=== PATIENT | female | born 1995 | race Caucasian/White ===

== ENCOUNTER 2024-10-18 05:43 | Emergency (ER) | payer MEDICAID, SELFPAY ==
[2024-10-18 05:44] VITALS: BMI 43.8
[2024-10-18 05:56] VITALS: BP 130/84; PULSE 65; RESP 19; TEMP 36.4; O2SAT 100
--- NOTE | 2024-10-18 06:33 | XR_ITS ---
Examination: Complete OB ultrasound, less than 14 weeks, transabdominal Date and time of exam: October 18, 2024, 0712 hrs. Indications: Onset vaginal bleeding beginning 2 days ago Technique: Obstetrical ultrasound images less than 14 weeks performed via transabdominal imaging Findings: Uterus 9.3 cm, CRL 2.0 cm corresponds to 8 weeks 4 days gestational age. No cardiac motion. Right ovary 3.2 cm arterial flow. Left ovary 4.2 cm arterial flow Impression: demise.
--- NOTE | 2024-10-18 06:37 | PD.EDVAGBL ---
ED OB Contraction Preg RMI/HPI General Chief complaint: Vaginal Bleeding Stated complaint: 9 WKS PREG VAG BLEEDING Time Seen by Provider: 10/18/24 08:12 Source: patient Arrival date/time: 10/18/24 05:43 29-year-old female with no known medical history presents to the emergency room with a chief complaint of vaginal bleeding x 2 days. Patient is currently 9 weeks she is a G 2P1. Mode of arrival: ambulatory Limitations: no limitations Related Data Previous Rx's ?Medication ?Instructions ?Recorded ibuprofen 800 mg tablet 800 mg PO TID PRN pain #30 tabs 08/15/22 cyclobenzaprine 10 mg tablet 10 mg PO HS PRN muscle spasm #14 02/01/23 tabs Allergies Allergy/AdvReac Type Severity Reaction Status Date / Time No Known Allergies Allergy Verified 10/18/24 05:51 Review of Systems Review of Systems Systems Reviewed: All systems reviewed, normal except as documented Constitutional Constitutional: Reports system reviewed and no additional complaints, except as documented, Denies fatigue, Denies fever(s), Denies headache(s) and Denies weakness Eyes Eyes: Reports system reviewed and no additional complaints, except as documented, Denies blurry vision and Denies change in vision ENT Ears, Nose, Mouth, and Throat: Reports system reviewed and no additional complaints, except as documented, Denies otalgia, Denies headache(s), Denies nasal congestion, Denies throat swelling and Denies vertigo Cardiovascular Cardiovascular: Reports system reviewed and no additional complaints, except as documented, Denies chest pain, Denies dyspnea and Denies dyspnea on exertion Respiratory Respiratory: Reports system reviewed and no additional complaints, except as documented, Denies chest congestion, Denies cough, Denies dyspnea, Denies dyspnea on exertion and Denies wheezing Gastrointestinal Gastrointestinal: Reports system reviewed and no additional complaints, except as documented, Denies abdominal pain, Denies cramping, Denies nausea and Denies vomiting Genitourinary Genitourinary: Reports system reviewed and no additional complaints, except as documented, Reports abnormal vaginal bleeding and Reports pelvic pain Musculoskeletal Musculoskeletal: Reports system reviewed and no additional complaints, except as documented and Denies back pain Integumentary/Breasts Skin/Breast: Reports system reviewed and no additional complaints, except as documented and Denies wounds Neurologic Neurologic: Reports system reviewed and no additional complaints, except as documented, Denies confusion, Denies headache(s), Denies lack of coordination, Denies vertigo and Denies weakness Psychiatric Psychiatric: Reports system reviewed and no additional complaints, except as documented, Denies anxiety, Denies confusion, Denies depression, Denies paranoia, Denies suicidal ideation and Denies tactile hallucinations Endocrine Endocrine: Reports system reviewed and no additional complaints, except as documented and Denies fatigue Hematologic/Lymphatic Hematologic/Lymphatic: Reports system reviewed and no additional complaints, except as documented and Denies lymphadenopathy Allergic/Immunologic Allergic/Immunologic: Reports system reviewed and no additional complaints, except as documented, Denies throat swelling, Denies urticaria and Denies wheezing Past Medical History Past Medical History NEUROLOGIC: Negative Neurological Disorders or Seizures CARDIAC: Negative Cardiac Disorders or Congestive Heart Failure RESPIRATORY: Positive Asthma; Negative Chronic Obstructive Pulmonary Disease (COPD) GASTROINTESTINAL: Negative Gastrointestinal Disorders GENITOURINARY: Positive Genitourinary Disorders; Negative Renal Disease REPRODUCTIVE: Positive Previous Pregnancies; Negative Endometriosis, Pelvic Inflammatory Disease or Uterine Prolapse MUSCULOSKELETAL: Negative Musculoskeletal Disorders ENDOCRINE: Negative Endocrine Disorders, Diabetes Mellitus Type 1 or Diabetes Mellitus Type 2 HEMATOLOGIC: Negative Blood Disorders or Anemia PSYCHO/SOCIAL: Positive Anxiety OTHER HISTORY: Positive Hospitalization; Negative Autoimmune Disease, Falls, Blood Transfusions or Anesthesia Reactions Family History FAMILY HISTORY: Positive Family Respiratory Disorders; Negative Family Psychiatric Problems, Family Cardiac Disorders, Family Gastrointestinal Problems, Family Cancer, Family Surgery or Family Anesthesia Reaction Surgical History SURGICAL: Negative Section Social History SMOKING STATUS: Never smoker ED Exam General Limitations: Present no limitations General appearance: Present alert and in no apparent distress Head Head exam: Present atraumatic Eye Eye exam: Present normal appearance, PERRL and EOMI ENT ENT exam: Present normal exam, normal oropharynx and mucous membranes moist Neck Neck exam: Present normal inspection, full ROM and trachea midline Chest Chest inspection: Present normal inspection and symmetric chest wall rise Respiratory Respiratory exam: Present normal lung sounds bilaterally Cardiovascular Cardiovascular exam: Present regular rate, normal rhythm and normal heart sounds Abdominal Exam Abdominal exam: Present soft, tenderness and normal bowel sounds; Absent distention, guarding, rebound, rigidity, Mcclain's sign or tenderness at McBurney's Point Abdominal tenderness: Present LLQ and mild Extremities Exam Extremities exam: Present normal inspection and full ROM Back Exam Back exam: Present normal inspection and full ROM Neurological Exam Neurological exam: Present alert, oriented X3 and CN II-XII intact Psychiatric Psychiatric exam: Present normal affect and normal mood Skin Skin exam: Present warm, dry, intact and normal color Course Quality Measures none Orders Category Date Time Status Consult to Gynecology Stat Cons 10/18/24 09:47 Ordered US OB <= 14 weeks fetus Stat Exams 10/18/24 06:33 Completed US OB transvaginal Stat Exams 10/18/24 07:25 Completed ABO/RH Type Stat Lab 10/18/24 07:02 Results Beta HCG,Quantitative Stat Lab 10/18/24 07:02 Completed CBC Stat Lab 10/18/24 07:02 Completed CMP [Comprehensive Metabolic Panel] Stat Lab 10/18/24 07:02 Completed UA [Urinalysis] Stat Lab 10/18/24 07:30 Completed Vital Signs Vital signs: Vital Signs Temperature 97.6 F 10/18/24 05:56 Pulse Rate 65 10/18/24 05:56 Respiratory Rate 19 10/18/24 05:56 Blood Pressure 130/84 10/18/24 05:56 Pulse Oximetry (%) 100 10/18/24 05:56 Oxygen Delivery Method Room Air 10/18/24 05:56 Vaginal Bleeding MDM Narrative MDM Narrative: 29-year-old female with no known medical history presents to the emergency room with a chief complaint of vaginal bleeding x 2 days. Patient is currently 9 weeks she is a G 2P1. Patient is hemodynamically stable and in no apparent distress Physical examination shows left lower quadrant abdominal pain and tenderness with palpation. Patient states she has had vaginal bleeding that is bright red x 2 days. Patient's H&H is within normal limits. OB transvaginal ultrasound shows a gestational age of 8 weeks and 5 days with no cardiac motion. The patient also has 2 subchorionic hemorrhages. The OB ultrasound showed a demise Dr. Canela the PRECISION THREAD GRINDER OPERATOR on-call was consulted and he came down to see the patient. Dr. Canela spoke to the patient and will see her tomorrow in his office. Per Dr. Canela the patient states she would like a second opinion and she will go to another hospital for repeat blood work and ultrasound. The patient wants to be discharged Patient was discharged and educated to follow-up with primary care provider in the next 24 to 48 hours and return to the emergency room for any evidence of worsening signs or symptoms Patient data External records reviewed:: [facility] previous records Clinical information provided by:: patient Social determinants that could affect healthcare access:: none Patient has the following chronic illnesses:: No chronic illness How is presenting disease/condition affected by chronic disease/condition?: no chronic disease Evaluation data The following diagnostics were reviewed and interpreted by me:: lab results and radiology exam(s) Lab and/or radiology exams considered but not ordered:: Labs and radiology exams considered in order Interpretation Summary: OB ultrasound-Findings: Uterus 9.3 cm, CRL 2.0 cm corresponds to 8 weeks 4 days gestational age. No cardiac motion. Right ovary 3.2 cm arterial flow. Left ovary 4.2 cm arterial flow Impression: demise. OB transvaginal ultrasound-Findings: Uterus 7.8 cm CRL 2.1 cm corresponds to 8 weeks 5 day gestational age, no cardiac motion 26 mm, 23 mm subchorionic hemorrhages Right ovary 2.0 cm arterial flow. Left ovary 3.1 cm arterial flow Impression: demise. Medications / Prescriptions Medications or Prescriptions considered but not ordered:: No medication given Medication administrations:: No medication given Consultations Consultation(s) initiated? (list below): Yes Consultation #1 (Physician, Specialty, Details): Dr. Canela PRECISION THREAD GRINDER OPERATOR on-call Time: 09:25 Diagnosis Vaginal Bleeding Differential Diagnosis: threatened , dysfunctional uterine bleeding, incomplete , ectopic without intrauterine , vaginal bleeding and other ( demise) Most likely diagnosis given after review of the tests above:: demise Admission Indicated Admission indicated?: not indicated Admission Request Was there a request for admission?: No Disposition Plan Disposition Plan: Discharge Discharge Attestation Discharge Attestation: The patient and all family members were given an opportunity to ask questions and understood the discharge instructions. Discharge instructions specifically effects, indications for sooner follow up or return to the emergency department, and the expected course of current diagnosis. Patient condition: Stable Discharge Plan Plan Patient Disposition: HOME (Self Care) Discharge Disposition comment: Stable Prescriptions/Referrals Prescriptions/Med Rec: No Action ibuprofen 800 mg tablet 800 mg PO TID PRN (Reason: pain) Qty: 30 0RF cyclobenzaprine 10 mg tablet 10 mg PO HS PRN (Reason: muscle spasm) Qty: 14 0RF Referrals: No Primary/Family,Physician [Primary Care Provider] - In 1 week Problem List Clinical Impression: demise Patient/Caregiver Discharge Instructions Additional Instructions: Please follow-up with your PRECISION THREAD GRINDER OPERATOR in the next 24 to 48 hours Your ultrasound results were given to you. Dr. Canela PRECISION THREAD GRINDER OPERATOR saw you today and will see you tomorrow For any evidence of worsening signs or symptoms return to the emergency room immediately Print Language: Syriac Stand Alone Forms: Juliette Award Info., Patient Portal Info Letter PA/FORESTRY AID TECHNICIAN Supervising Physician PA/FORESTRY AID TECHNICIAN Supervising Physician: Dr. Andrew
[2024-10-18 07:17] LABS: Basophils # (Auto) 0.1 Thou/mm3 (0.0-0.2); Basophils % (Auto) 1 % (0-2.5); Eosinophils # (Auto) 0.3 Thou/mm3 (0.0-0.5); Eosinophils % (Auto) 4 % (0-10); Hematocrit 35.5 % (36.0-46.0); Hemoglobin 11.3 g/dL (12.0-16.0); Immature Granulocytes Auto 0.19 Thou/mm3 (0.00-0.00); Lymphocytes # (Auto) 2.1 Thou/mm3 (1.0-4.8); Lymphocytes % (Auto) 27 % (10-50); Mean Corpuscular HGB Conc 31.8 g/dl (31.0-37.0); Mean Corpuscular Hemoglobin 25.5 pg (25.0-35.0); Mean Corpuscular Volume 80 fL (80-100); Monocytes # (Auto) 0.7 Thou/mm3 (0.0-0.8); Monocytes % (Auto) 8 % (0-12); Neutrophils # (Auto) 4.7 Thou/mm3 (1.8-7.7); Neutrophils % (Auto) 59 % (37-80); Nucleated Red Blood Cell # 0.00 Thou/mm3 (0.00-0.00); Nucleated Red Blood Cell % 0 /100 WBC (0); Platelet Count 415 Thou/mm3 (140-440); RDW Standard Deviation 40.0 fL (36.4-46.3); Red Blood Count 4.43 Miln/mm3 (4.00-5.20); White Blood Count 8.0 Thou/mm3 (3.6-11.0)
--- NOTE | 2024-10-18 07:25 | XR_ITS ---
Examination: OB Transvaginal ultrasound of the pelvis, complete Technique: Transvaginal sonographic images pelvis performed using coello scale imaging Exam date and time: October 18, 2024, 0728 hrs. Indications: Vaginal bleeding beginning 2 days ago. Findings: Uterus 7.8 cm CRL 2.1 cm corresponds to 8 weeks 5 day gestational age, no cardiac motion 26 mm, 23 mm subchorionic hemorrhages Right ovary 2.0 cm arterial flow. Left ovary 3.1 cm arterial flow Impression: demise.
[2024-10-18 07:49] LABS: Alanine Aminotransferase 55 U/L (10-49); Albumin, Serum 4.2 gm/dL (3.5-5.0); Albumin/Globulin Ratio 1.9 (1.2-2.2); Alkaline Phosphatase 73 U/L (46-116); Anion Gap 8 (7-16); Aspartate Amino Transferase 27 U/L (0-34); BUN/Creatinine Ratio 8 Ratio (12-20); Bilirubin,Total 0.2 mg/dL (0.3-1.2); Blood Urea Nitrogen 5 mg/dL (9-23); Calcium 9.1 mg/dL (8.3-10.6); Calcium (Corrected) 9.1 mg/dL (8.5-10.1); Carbon Dioxide 26.5 mMol/L (20.0-31.0); Chloride 106 mMol/L (98-107); Creatinine (Component) 0.6 mg/dL (0.6-1.3); Estimated Creatinine Clearance 189.9 mL/min (>60); Globulin 2.2 gm/dL (2.3-3.5); Glucose 102 mg/dL (74-106); Osmolality,Calculated 276 (275-295); Potassium 3.4 mMol/L (3.4-5.1); Sodium 140 mMol/L (136-145); Total Protein 6.4 gm/dL (5.7-8.2); eGFR > 60 See Note
[2024-10-18 08:10] LABS: Collection Type, Urine Clean Catch
[2024-10-18 08:21] LABS: Beta HCG,Quantitative 20526 mIU/mL (<5.0)
[2024-10-18 08:35] LABS: Bacteria,Urine 3+; Bilirubin,Urine Negative (Negative); Blood,Urine Negative (Negative); Budding Yeast,Urine Present; Clarity,Urine Hazy (Clear/Hazy); Color,Urine Yellow (Lt Yel-Yel); Glucose, Urine 4+ (Negative); Ketones,Urine Trace (Negative); Leukocyte Esterase,Urine Negative (Negative); Nitrite,Urine Positive (Negative); PH,Urine 6.0 (5.0-7.0); Protein,Urine Negative (Neg - Trace); RBC,Urine 2 /hpf (0-3); Specific Gravity,Urine 1.037 (1.001-1.035); Squamous Epithelial Cell,Urine 2 /hpf (0-5); Urobilinogen,Urine Negative mg/dL (0.0-1.0); WBC,Urine 2 /hpf (0-5)
--- NOTE | 2024-10-18 11:47 | PC.CC ---
Caridad NUÑEZ was consulted by MARIANNE Torres regarding a ride for patient back home. JOAQUIN arranged a ride with [facility] back to [place] for the patient.
== END 2024-10-18 09:53 | disposition home or self-care (01) ==
PROVIDERS: Nurse Practitioner Family; Emergency Provider Family Medicine
DX: O02.1 Missed abortion (principal)
CPT/HCPCS: 36415; 76801; 76817; 80053; 81001; 84702; 85025; 86900; 86901; 99283

== ENCOUNTER 2024-10-29 22:29 | Emergency (ER) | payer MEDICAID, SELFPAY ==
[2024-10-29 22:31] VITALS: BMI 50.3
[2024-10-29 23:07] VITALS: BP 147/89; PULSE 89; RESP 22; TEMP 37.1; O2SAT 98
--- NOTE | 2024-10-29 23:36 | XR_ITS ---
Examination: Complete OB ultrasound, less than 14 weeks, transabdominal Date and time of exam: October 29, 2024, 11:51 PM INDICATIONS: Pelvic cramping and vaginal bleeding beginning 2 weeks ago, miscarriage history with demise October 18, 2024 Technique: Obstetrical ultrasound images less than 14 weeks performed via transabdominal imaging Findings: Uterus 12.4 cm, intrauterine gestational sac 1.5 cm corresponds to 6 week 2 day gestational age. No pole, no cardiac activity, patient passing clots during this study Right ovary 3.4 cm arterial flow No appropriate obscured by bowel gas Endometrial stripe 1.6 cm IMPRESSION: Empty intrauterine gestational sac corresponding to 6 weeks 2 days gestational age No pole, no cardiac activity Clinical correlation advised Suggest continued short-term follow-up ultrasound
--- NOTE | 2024-10-29 23:37 | PD.EDVAGBL ---
ED OB Contraction Preg RMI/HPI General Chief complaint: Abdominal Pain Stated complaint: LOW ABD CRAMPING POSS MISCARAGE Time Seen by Provider: 10/29/24 23:30 Arrival date/time: 10/29/24 22:29 RME / HPI RME / HPI Narrative: DR. MENJIVAR MAIN ED EVALUATION: 29 y/o female with Hx of Asthma and Anxiety presents to ED c/o pelvic cramping and vaginal bleeding x 5 hours. Patient was seen in ED on 10/18/2024 and had US showing an 8 week, 4 day fetus with no cardiac motion. Patient was then seen in [place] on Saturday, and was told that the fetus had passed and only the the amniotic sac remains. This is the patient's second and denies any complications with the first . No other concerns or complaints expressed at this time. Related Data : 2 Para: 1 Previous Rx's ?Medication ?Instructions ?Recorded ibuprofen 800 mg tablet 800 mg PO TID PRN pain #30 tabs 08/15/22 cyclobenzaprine 10 mg tablet 10 mg PO HS PRN muscle spasm #14 02/01/23 tabs morphine 15 mg immediate release 15 mg PO Q6H PRN pain #10 tabs 10/30/24 tablet Allergies Allergy/AdvReac Type Severity Reaction Status Date / Time No Known Allergies Allergy Verified 10/29/24 22:35 Review of Systems Review of Systems Systems Reviewed: All systems reviewed, normal except as documented Past Medical History Past Medical History RESPIRATORY: Positive Asthma GENITOURINARY: Positive Genitourinary Disorders REPRODUCTIVE: Positive Previous Pregnancies PSYCHO/SOCIAL: Positive Anxiety OTHER HISTORY: Positive Hospitalization Family History FAMILY HISTORY: Positive Family Respiratory Disorders ED Exam Narrative Physical exam: Generally patient is alert and in mild distress secondary to pain, heart regular rate and rhythm, lungs clear to auscultation equal bilaterally, abdomen soft bowel sounds present nondistended suprapubic abdominal tenderness without rebound, skin cool pale and dry, neurologic exam no focal motor or sensory deficits cranial nerves II through XII grossly intact Course Quality Measures none Orders Category Date Time Status US OB <= 14 weeks fetus Stat Exams 10/29/24 23:36 Taken Beta HCG,Quantitative Stat Lab 10/29/24 23:40 Completed Morphine Inj Med 10/29/24 23:37 Discontinued 5 mg IM X1 ONE Vital Signs Vital signs: Vital Signs Temperature 98.8 F 10/29/24 23:07 Pulse Rate 89 10/29/24 23:07 Respiratory Rate 22 H 10/29/24 23:07 Blood Pressure 147/89 H 10/29/24 23:07 Pulse Oximetry (%) 98 10/29/24 23:07 Oxygen Delivery Method Room Air 10/29/24 23:07 Vaginal Bleeding MDM Narrative MDM Narrative: Scribe Attestation: I, Magalys Beverly, am scribing for and in the presence of Dr. Menjivar. Provider Notation: Although this document has been carefully reviewed, there may still be some phonetic and other typographical errors.? These errors are purely grammatical due to imperfections in the software program and should not be construed in any way to? compromise the substance of the patient's medical care during this visit. Quantitative beta-hCG measurement was markedly lower than where it was 11 days ago. Pelvic ultrasound showed a gestational sac without pole. This measures 6 weeks and 2 days in size. Patient is obviously trying to expel a demise. She is not currently bleeding. She was given morphine 5 mg IM here in the emergency room. She was discharged on morphine tablets for pain to be taken as prescribed. Follow-up with your ELEMENTARY TEACHER physician. Return to ER as needed or if condition worsens. Patient data External records reviewed:: [facility] previous records (Reviewed prior ED records from 10/18/24. Patient was seen for demise.) Clinical information provided by:: patient Social determinants that could affect healthcare access:: none Patient has the following chronic illnesses:: Asthma, Anxiety How is presenting disease/condition affected by chronic disease/condition?: uneffected by Evaluation data The following diagnostics were reviewed and interpreted by me:: lab results and radiology exam(s) Lab and/or radiology exams considered but not ordered:: None Interpretation Summary: RADIOLOGY US: Findings: Intrauterine gestational sac (MSD 1.45 cm) corresponding to a gestational age of 6 weeks and 2 days. The pole is not visualized. The yolk sac is not visualized. The uterus is normal in size measuring 12.4 x 5.0 x 6.1 cm. The endometrium is unremarkable and measures 1.6 cm. The right ovary measures 3.4 x 2.2 x 2.3 cm and is unremarkable. The left ovary was not visualized. The right ovary demonstrates color flow and spectral waveforms on Doppler evaluation. There is no adnexal mass. There is no free fluid on the submitted images. Impression: Intrauterine gestational sac corresponding to a gestational age of 6 weeks and 2 days without evidence of pole or yolk sac. Please, correlate clinically. Medications / Prescriptions Medications or Prescriptions considered but not ordered:: None Medication administrations:: Medication Administration History Discontinued Medications Morphine Sulfate (Morphine Sulf Inj 10 Mg/Ml Vial) 5 mg IM X1 ONE Stop: 10/29/24 23:38 Last Admin: 10/29/24 23:49 Dose: 5 mg Documented By: SM See above Consultations Consultation(s) initiated? (list below): No Diagnosis Vaginal Bleeding Differential Diagnosis: missed , threatened , dysfunctional uterine bleeding, incomplete , ectopic without intrauterine and vaginal bleeding Most likely diagnosis given after review of the tests above:: none Admission Indicated Admission indicated?: not indicated Explain why admission is indicated or not indicated:: Patient does not meet admission criteria. Admission Request Was there a request for admission?: No Disposition Plan Disposition Plan: Discharge Discharge Attestation Discharge Attestation: The patient and all family members were given an opportunity to ask questions and understood the discharge instructions. Discharge instructions specifically effects, indications for sooner follow up or return to the emergency department, and the expected course of current diagnosis. Patient condition: Stable Discharge Plan Plan Patient Disposition: HOME (Self Care) Prescriptions/Referrals Prescriptions/Med Rec: New morphine 15 mg tablet 15 mg PO Q6H MDD 4 PRN (Reason: pain) Qty: 10 0RF No Action ibuprofen 800 mg tablet 800 mg PO TID PRN (Reason: pain) Qty: 30 0RF cyclobenzaprine 10 mg tablet 10 mg PO HS PRN (Reason: muscle spasm) Qty: 14 0RF Referrals: Halley Nelson PA-C [Primary Care Provider] - In 1 week Problem List Clinical Impression: demise Patient/Caregiver Discharge Instructions Additional Instructions: You will eventually bleed more and pass the gestational sac. Morphine as prescribed. Follow-up with your ELEMENTARY TEACHER physician. Print Language: Kinyarwanda Stand Alone Forms: Juliette Award Info., Patient Portal Info Letter
[2024-10-29] MEDS: MORPHINE SULF INJ 10 MG/ML VIAL 5 MG IM (23:49)
[2024-10-30 00:18] LABS: Beta HCG,Quantitative 2175 mIU/mL (<5.0)
--- NOTE | 2024-10-30 02:11 | PRELIM_ITS ---
Pelvic ultrasound (transabdominal ) with Doppler and wave Doppler spectral analysis. October 29, 2024 2351 hours Clinical history: Probable with demise Technique: Real-time, grayscale, transabdominal and transvaginal pelvic ultrasound was performed using Duplex scanning including arterial inflow, venous outflow, color and spectral Doppler. Comparison: None. Findings: Intrauterine gestational sac (MSD 1.45 cm) corresponding to a gestational age of 6 weeks and 2 days. The pole is not visualized. The yolk sac is not visualized. The uterus is normal in size measuring 12.4 x 5.0 x 6.1 cm. The endometrium is unremarkable and measures 1.6 cm. The right ovary measures 3.4 x 2.2 x 2.3 cm and is unremarkable. The left ovary was not visualized. The right ovary demonstrates color flow and spectral waveforms on Doppler evaluation. There is no adnexal mass. There is no free fluid on the submitted images. Impression: Intrauterine gestational sac corresponding to a gestational age of 6 weeks and 2 days without evidence of pole or yolk sac. Please, correlate clinically. Report Electronically Signed By: Jaime Michaels 10/30/2024 2:10:52 AM [EST]
[2024-10-30 02:48] VITALS: BP 127/78; PULSE 74; RESP 15; O2SAT 94
== END 2024-10-30 02:49 | disposition home or self-care (01) ==
PROVIDERS: Emergency Provider Emergency Medicine; PCP Physician Assistant
DX: O36.4XX0 Maternal care for intrauterine death, not applicable or unspecified (principal)
CPT/HCPCS: 36415; 76801; 84702; 96372; 99283; J2270

== ENCOUNTER 2024-12-10 13:43 | Emergency (ER) | payer MEDICAID, SELFPAY ==
[2024-12-10 13:49] VITALS: BMI 41.5
[2024-12-10 14:21] VITALS: BP 106/53; PULSE 70; RESP 17; TEMP 36.9; O2SAT 98
--- NOTE | 2024-12-10 14:26 | XR_ITS ---
Examination: Fingers, right hand third digit 3 views Technique: AP, oblique, lateral views right hand third digit. Exam date and time: December 10, 2024, 1433 hours INDICATIONS: Dog bite 6 days ago with third digit pain. FINDINGS: No fracture. No cortical bone destruction No foreign body IMPRESSION: No cortical bone destruction
--- NOTE | 2024-12-10 14:27 | EDNOTE_ITS ---
Upper Extremity Injury RME/HPI General Chief Complaint: Extremity Injury, Upper Stated Complaint: RIGHT MIDDLE FINGER, DOG BITE ON 12/04/24 Time Seen by Provider: 12/10/24 13:57 Arrival date/time: 12/10/24 13:43 29-year-old female presents to the [facility] department today states she was bit by a [place] bulldog on her right hand third digit distal aspect, patient reports pain and swelling to the area Limitations: no limitations Related Data Previous Rx's ?Medication ?Instructions ?Recorded ibuprofen 800 mg tablet 800 mg PO TID PRN pain #30 t abs 08/15/22 cyclobenzaprine 10 mg tablet 10 mg PO HS PRN muscle sp asm #14 02/01/23 tabs morphine 15 mg immediate release 15 mg PO Q6H PRN pain #10 tabs 10/30/24 tablet amoxicillin 875 mg-potassium 1 tab PO BID 7 days #14 t abs 12/10/24 clavulanate 125 mg tablet ibuprofen 800 mg tablet 800 mg PO TID PRN pain #30 t abs 12/10/24 Allergies Allergy/AdvReac Type Severity Reaction Status Date / Time pineapple Allergy Redness of Verified 12/10/24 13:49 Skin Review of Systems Review of Systems Systems Reviewed: All systems reviewed, normal except as documented Constitutional Constitutional: Reports system reviewed and no additional complaints, except as documented, Denies fever(s) and Denies headache(s) Eyes Eyes: Reports system reviewed and no additional complaints, except as documented and Denies blurry vision ENT Ears, Nose, Mouth, and Throat: Reports system reviewed and no additional complaints, except as documented, Denies headache(s), Denies nasal congestion and Denies nasal discharge Cardiovascular Cardiovascular: Reports system reviewed and no additional complaints, except as documented, Denies chest pain and Denies dyspnea Respiratory Respiratory: Reports system reviewed and no additional complaints, except as documented, Denies chest congestion, Denies cough and Denies dyspnea Gastrointestinal Gastrointestinal: Reports system reviewed and no additional complaints, except as documented and Denies abdominal pain Integumentary/Breasts Skin/Breast: Reports system reviewed and no additional complaints, except as documented, Denies rash and Reports wounds (Dog bite right hand middle finger) Neurologic Neurologic: Reports system reviewed and no additional complaints, except as documented, Reports as per HPI and Denies headache(s) Past Medical History Past Medical History NEUROLOGIC: Negative Neurological Disorders or Seizures CARDIAC: Negative Cardiac Disorders or Congestive Heart Failure RESPIRATORY: Positive Asthma; Negative Chronic Obstructive Pulmonary Disease (COPD) GASTROINTESTINAL: Negative Gastrointestinal Disorders GENITOURINARY: Positive Genitourinary Disorders; Negative Renal Disease REPRODUCTIVE: Positive Previous Pregnancies; Negative Endometriosis, Pelvic Inflammatory Disease or Uterine Prolapse MUSCULOSKELETAL: Negative Musculoskeletal Disorders ENDOCRINE: Negative Endocrine Disorders, Diabetes Mellitus Type 1 or Diabetes Mellitus Type 2 HEMATOLOGIC: Negative Blood Disorders or Anemia PSYCHO/SOCIAL: Positive Anxiety OTHER HISTORY: Positive Hospitalization; Negative Autoimmune Disease, Falls, Blood Transfusions or Anesthesia Reactions Family History FAMILY HISTORY: Positive Family Respiratory Disorders; Negative Family Psychiatric Problems, Family Cardiac Disorders, Family Gastrointestinal Problems, Family Cancer, Family Surgery or Family Anesthesia Reaction Surgical History SURGICAL: Negative Section Social History SMOKING STATUS: Never smoker ED Exam General Limitations: Present no limitations General appearance: Present alert and in no apparent distress Head Head exam: Present atraumatic, normocephalic and normal inspection Eye Eye exam: Present normal appearance, PERRL and EOMI; Absent conjunctival injection ENT ENT exam: Present normal exam, normal oropharynx and mucous membranes moist Neck Neck exam: Present normal inspection, full ROM and trachea midline Chest Chest inspection: Present normal inspection and symmetric chest wall rise Respiratory Respiratory exam: Present normal lung sounds bilaterally; Absent respiratory distress Cardiovascular Cardiovascular exam: Present regular rate, normal rhythm and normal heart sounds Abdominal Exam Abdominal exam: Present soft and normal bowel sounds; Absent distention, tenderness, guarding, rebound or rigidity Abdominal tenderness: Absent RUQ or RLQ Extremities Exam Extremities exam: Present normal inspection and full ROM Back Exam Back exam: Present normal inspection and full ROM Neurological Exam Neurological exam: Present alert, oriented X3 and CN II-XII intact Psychiatric Psychiatric exam: Present normal affect and normal mood Skin Skin exam: Present warm, dry, intact and normal color Course Quality Measures none Orders Category Date Time Status XR finger RT min 2V Stat Exams 12/10/24 14:26 Completed Vital Signs Vital signs: Vital Signs Temperature 98.5 F 12/10/24 14:21 Pulse Rate 70 12/10/24 14:21 Respiratory Rate 17 12/10/24 14:21 Blood Pressure 106/53 L 12/10/24 14:21 Pulse Oximetry (%) 98 12/10/24 14:21 Oxygen Delivery Method Room Air 12/10/24 14:21 O2 saturation 98% on room air within normal limits Extremity Injury MDM Narrative MDM Narrative:: 29-year-old female [facility] today states she was bit by a [place] bulldog on her right hand third digit distal aspect, patient reports pain and swelling to the area On exam patient well-appearing patient does not appear toxic no acute distress On exam patient has mild swelling distal aspect right hand third digit no evidence of infection X-ray of the hand obtained no acute fracture dislocation noted no acute foreign bodies Patient discharged home in no distress to follow-up with primary care doctor in the next 24 to 48 hours and for any worsening symptoms to return to the ER immediately Patient data External records reviewed:: [facility] previous records Clinical information provided by:: patient Social determinants that could affect healthcare access:: none Patient has the following chronic illnesses:: None How is presenting disease/condition affected by chronic disease/condition?: no chronic disease Evaluation data The following diagnostics were reviewed and interpreted by me:: radiology exam(s) Lab and/or radiology exams considered but not ordered:: Allergy obtained Interpretation Summary: By me Medications / Prescriptions Medications or Prescriptions considered but not ordered:: Given Medication administrations:: Given Consultations Consultation(s) initiated? (list below): No Diagnosis Upper Extremity Injury Differential Diagnosis: dislocation of finger, fracture of hand and other (Finger infection) Most likely diagnosis given after review of the tests above:: Bite finger Admission Indicated Admission indicated?: not indicated Admission Request Was there a request for admission?: No Disposition Plan Disposition Plan: Discharge Discharge Attestation Discharge Attestation: The patient and all family members were given an opportunity to ask questions and understood the discharge instructions. Discharge instructions specifically effects, indications for sooner follow up or return to the emergency department, and the expected course of current diagnosis. Patient condition: Stable Discharge Plan Plan Patient Disposition: HOME (Self Care) Discharge Disposition comment: Stable Prescriptions/Referrals Prescriptions/Med Rec: New ibuprofen 800 mg tablet 800 mg PO TID PRN (Reason: pain) Qty: 30 0RF amoxicillin-pot clavulanate 875-125 mg tablet 1 tab PO BID 7 Days Qty: 14 0RF No Action morphine 15 mg tablet 15 mg PO Q6H MDD 4 PRN (Reason: pain) Qty: 10 0RF ibuprofen 800 mg tablet 800 mg PO TID PRN (Reason: pain) Qty: 30 0RF cyclobenzaprine 10 mg tablet 10 mg PO HS PRN (Reason: muscle spasm) Qty: 14 0RF Referrals: Halley Nelson PA-C [Primary Care Provider] - 12/11/24 Problem List Clinical Impression: Dog bite of finger, Dog bite Patient/Caregiver Discharge Instructions Education Materials: ED Dog Bite Additional Instructions: Please follow up with your primary care doctor in the next 24-48hrs for any worsening symptoms return here immediately Print Language: Swiss Stand Alone Forms: Juliette Award Info., Patient Portal Info Letter PA/FIELD TAX AUDITOR Supervising Physician PA/FIELD TAX AUDITOR Supervising Physician: Dr. Rodriguez
== END 2024-12-10 18:30 | disposition home or self-care (01) ==
PROVIDERS: Emergency Provider Emergency Medicine; PCP Physician Assistant
DX: S61.252A Open bite of right middle finger without damage to nail, initial encounter (principal); W54.0XXA Bitten by dog, initial encounter
CPT/HCPCS: 73140; 99283

== ENCOUNTER 2025-03-09 23:08 | Emergency (ER) | payer MEDICAID, SELFPAY ==
[2025-03-09 23:33] VITALS: BP 134/83; PULSE 81; RESP 18; TEMP 36.8; O2SAT 99
[2025-03-09 23:40] VITALS: BMI 46.3
--- NOTE | 2025-03-09 23:42 | EDNOTE_ITS ---
ED Ear RME/HPI General Chief complaint: Ear Stated complaint: LEFT EAR PAIN Time Seen by Provider: 03/09/25 23:38 Arrival date/time: 03/09/25 23:08 30F with history of asthma presents to ED with several days of L jaw/ear pain. Limitations: no limitations Related Data Previous Rx's ?Medication ?Instructions ?Recorded ibuprofen 800 mg tablet 800 mg PO TID PRN pain #30 t abs 08/15/22 cyclobenzaprine 10 mg tablet 10 mg PO HS PRN muscle sp asm #14 02/01/23 tabs morphine 15 mg immediate release 15 mg PO Q6H PRN pain #10 tabs 10/30/24 tablet ibuprofen 800 mg tablet 800 mg PO TID PRN pain #30 t abs 12/10/24 amoxicillin 875 mg-potassium 1 tab PO BID 5 days #10 t abs 03/09/25 clavulanate 125 mg tablet Allergies Allergy/AdvReac Type Severity Reaction Status Date / Time pineapple Allergy Redness of Verified 03/09/25 23:09 Skin Review of Systems Review of Systems Systems Reviewed: All systems reviewed, normal except as documented ENT Ears, Nose, Mouth, and Throat: Reports as per HPI, Reports dental pain and Reports otalgia Past Medical History Past Medical History NEUROLOGIC: Negative Neurological Disorders or Seizures CARDIAC: Negative Cardiac Disorders or Congestive Heart Failure RESPIRATORY: Positive Asthma; Negative Chronic Obstructive Pulmonary Disease (COPD) GASTROINTESTINAL: Negative Gastrointestinal Disorders GENITOURINARY: Positive Genitourinary Disorders; Negative Renal Disease REPRODUCTIVE: Positive Previous Pregnancies; Negative Endometriosis, Pelvic Inflammatory Disease or Uterine Prolapse MUSCULOSKELETAL: Negative Musculoskeletal Disorders ENDOCRINE: Negative Endocrine Disorders, Diabetes Mellitus Type 1 or Diabetes Mellitus Type 2 HEMATOLOGIC: Negative Blood Disorders or Anemia PSYCHO/SOCIAL: Positive Anxiety OTHER HISTORY: Positive Hospitalization; Negative Autoimmune Disease, Falls, Blood Transfusions or Anesthesia Reactions Family History FAMILY HISTORY: Positive Family Respiratory Disorders; Negative Family Psychiatric Problems, Family Cardiac Disorders, Family Gastrointestinal Problems, Family Cancer, Family Surgery or Family Anesthesia Reaction Surgical History SURGICAL: Negative Section Social History SMOKING STATUS: Never smoker ED Exam General Limitations: Present no limitations General appearance: Present alert and in no apparent distress Head Head exam: Present atraumatic ENT ENT exam: Present normal oropharynx and mucous membranes moist Expanded ENT Exam TM/Canal exam: Left TM: effusion Neck Neck exam: Present normal inspection, full ROM and trachea midline Chest Chest inspection: Present normal inspection and symmetric chest wall rise Neurological Exam Neurological exam: Present alert and oriented X3 Psychiatric Psychiatric exam: Present normal affect and normal mood Skin Skin exam: Present warm, dry, intact and normal color Course Quality Measures none Orders Category Date Time Status HYDROcodone*/APAP 5/325 [[place] 5/325] Med 03/09/25 23:39 Once 1 tab PO X1 ONE dexAMETHasone INJ [Decadron Inj] Med 03/09/25 23:39 Once 10 mg PO X1 ONE Vital Signs Vital signs: Vital Signs Temperature 98.2 F 03/09/25 23:33 Pulse Rate 81 03/09/25 23:33 Respiratory Rate 18 03/09/25 23:33 Blood Pressure 134/83 H 03/09/25 23:33 Pulse Oximetry (%) 99 03/09/25 23:33 Oxygen Delivery Method Room Air 03/09/25 23:33 O2 at 99% on RA and WNLs Ear MDM Narrative MDM Narrative:: 30F with history of asthma presents to ED with several days of L jaw/ear pain. Physical exam reveals mild effusion in L TM, but no redness or bulging. Poor generalized dentition. Oropharynx normal. Patient is afebrile, calm, and alert. Meds and addictions counselor assistant given. Patient data External records reviewed:: [facility] previous records Clinical information provided by:: patient Social determinants that could affect healthcare access:: none Patient has the following chronic illnesses:: asthma How is presenting disease/condition affected by chronic disease/condition?: exacerbated by Evaluation data The following diagnostics were reviewed and interpreted by me:: other (specify) (none) Lab and/or radiology exams considered but not ordered:: not ordered Interpretation Summary: n/a Medications / Prescriptions Medications or Prescriptions considered but not ordered:: ordered Medication administrations:: Medication Administration History Hydrocodone Bitart/Acetaminophen (Hydrocodone/Apap 5/325 Tablet) 1 tab PO X1 ONE Stop: 03/09/25 23:40 Dexamethasone Sodium Phosphate (Dexamethasone Sod Phos Inj 10 Mg/Ml Vial) 10 mg PO X1 ONE Stop: 03/09/25 23:40 above Consultations Consultation(s) initiated? (list below): No Diagnosis Ear Differential Diagnosis: otitis externa, otitis media (serous), foreign body in ear, ruptured TM, cerumen impaction and other (toothache) Most likely diagnosis given after review of the tests above:: toothache and serous OM Admission Indicated Admission indicated?: not indicated Admission Request Was there a request for admission?: No Disposition Plan Disposition Plan: Discharge Discharge Attestation Discharge Attestation: The patient and all family members were given an opportunity to ask questions and understood the discharge instructions. Discharge instructions specifically effects, indications for sooner follow up or return to the emergency department, and the expected course of current diagnosis. Patient condition: Stable Discharge Plan Plan Patient Disposition: HOME (Self Care) Discharge Disposition comment: Stable Prescriptions/Referrals Prescriptions/Med Rec: New amoxicillin-pot clavulanate 875-125 mg tablet 1 tab PO BID 5 Days Qty: 10 0RF No Action morphine 15 mg tablet 15 mg PO Q6H MDD 4 PRN (Reason: pain) Qty: 10 0RF ibuprofen 800 mg tablet 800 mg PO TID PRN (Reason: pain) Qty: 30 0RF ibuprofen 800 mg tablet 800 mg PO TID PRN (Reason: pain) Qty: 30 0RF cyclobenzaprine 10 mg tablet 10 mg PO HS PRN (Reason: muscle spasm) Qty: 14 0RF Problem List Clinical Impression: Toothache, Serous otitis media Patient/Caregiver Discharge Instructions Education Materials: ED Dental Pain Additional Instructions: Please follow-up with PCP within 24-48 hours and return immediately if symptoms worsen. Ibuprofen/Tylenol can be used simultaneously for greater fever/pain control. Benadryl is good for cough, congestion, and sleep. Print Language: [place] Stand Alone Forms: Patient Portal Info Letter PERRY/BINA Supervising Physician PERRY/BINA Supervising Physician: Dr. Oliver
[2025-03-10] MEDS: HYDROcodone/APAP 5/325 TABLET 1 TAB PO (00:18)
== END 2025-03-09 23:45 | disposition home or self-care (01) ==
LOC: SERX 03-10 01:11
PROVIDERS: Emergency Provider Emergency Medicine; PCP Physician Assistant
DX: H65.92 Unspecified nonsuppurative otitis media, left ear (principal); K08.89 Other specified disorders of teeth and supporting structures
CPT/HCPCS: 99281; J1100; A9270